=== PATIENT | female | born 1990 | race Caucasian/White ===

== ENCOUNTER 2017-03-21 00:27 | Emergency (ER) | payer MEDICAID ==
[~2017-03-21] VITALS: Ht 172.7 cm; Wt 78.0 kg
[2017-03-21 02:53] VITALS: BP 154/87
== END 2017-03-21 01:19 | disposition home or self-care (01) ==
LOC: ED 01:13
DX: F16.129 Hallucinogen abuse with intoxication, unspecified (principal)
CPT/HCPCS: 99283